=== PATIENT | male | born 1960 | race African-American/Black ===

== ENCOUNTER 2019-12-06 13:09 | Emergency (ER) | payer MEDICARE | END 2019-12-06 14:03 | disposition home or self-care (01) | LOC: MADERS 13:09 | DX: I10 Essential (primary) hypertension (principal); E11.9 Type 2 diabetes mellitus without complications; E78.5 Hyperlipidemia, unspecified; E78.00 Pure hypercholesterolemia, unspecified; E66.9 Obesity, unspecified; Z79.899 Other long term (current) drug therapy; Z79.82 Long term (current) use of aspirin; Z79.4 Long term (current) use of insulin | CPT/HCPCS: 99281 ==

== ENCOUNTER 2019-12-09 14:07 | Emergency (ER) | payer MEDICARE ==
[2019-12-09] MEDS ORDERED: cloNIDine 0.1 MG TAB ONE (14:37)
== END 2019-12-09 16:06 | disposition home or self-care (01) ==
LOC: MADERS 14:07
DX: I10 Essential (primary) hypertension (principal); E11.9 Type 2 diabetes mellitus without complications; E78.5 Hyperlipidemia, unspecified; E78.00 Pure hypercholesterolemia, unspecified; E66.9 Obesity, unspecified; Z79.82 Long term (current) use of aspirin; Z79.4 Long term (current) use of insulin; Z79.899 Other long term (current) drug therapy
CPT/HCPCS: 99283